=== PATIENT | male | born 1950 | race Caucasian/White ===

== ENCOUNTER 2025-04-21 07:14 | Day surgery (SDC) | payer MEDICARE, OTHER, SELFPAY ==
[2025-04-21] VITALS (14 sets, daily range): BP systolic 130–163; BP diastolic 72–100; BMI 35.4
[2025-04-21] MEDS: LOW STRENGTH ASPIRIN 324 MG PO (08:20)
[2025-04-21 10:20] LABS: ACT-LR - POC > 397 Seconds (116-155)
[2025-04-21 10:20] LABS: ACT-LR - POC > 397 Seconds (116-155)
--- NOTE | 2025-04-21 10:21 | ITS.CL.ANGIO ---
Appointment Manager - Angioplasty
Angioplasty
Procedure Report:
LEFT HEART CATHETERIZATION
Date of Procedure: April 21, 2025
Procedures performed:
1: Coronary angiography
2: Free radial and left internal mammary artery bypass graft angiography
3: Left ventricular hemodynamic assessment
4: Complex percutaneous intervention of the [place] left main and circumflex with placement of 3 drug-eluting stents (3.5 x 15 mm Apolinar 2 distal left main into ostial/proximal circumflex and overlapping 2.25 x 18 mm Apolinar overlapping with a 2.5 x 22 mm
Jasper in the mid and distal obtuse marginal branch
Primary Care Provider: DARIEL Landaverde
Primary Superintendent Meters: Dr. Michael Godwin
INDICATION: The patient is a 74-year-old man with a past medical history significant for known severe coronary artery disease status post CABG over 20 years ago and status post [place] circumflex stenting's in 2003 and 2007 who presents with
recurrent angina and ruled in for a non-ST elevation VT recently during an admission at [facility] in rapid atrial fibrillation. He was started on amiodarone and is back in normal sinus rhythm. In light of his crescendo angina he is
referred for cardiac catheterization.
ACCESS: The patient was prepped and draped in usual sterile fashion. A 5 Greenlandic sheath was placed in the right common femoral artery using the Seldinger over the wire technique. This was upsized to a 6 [place]ic sheath once we moved to intervention.
HEMODYNAMIC FINDINGS (mmHg):
LV(s/d,EDP): 142/21, 23
Ao(s/d,m): 142/77, 106
ANGIOGRAPHIC FINDINGS:
Single-plane Left Ventriculography in GIBSON Projection: Not done. Echo performed during recent [facility] admit on April 17 reported preserved LV systolic function with a visually estimated ejection fraction at 55% and apical hypokinesis. No
significant valvular heart disease.
Coronary Angiography:
Dominance: Right
Left Main: The left main is heavily calcified with distal smooth 50% disease extending into the circumflex ostium.
Left Anterior Descending: Flush proximal occlusion.
Left Circumflex: The circumflex has a calcific 80% proximal stenosis just after the takeoff which appears worse compared to prior angiography in 2019. The first obtuse marginal branch noted on prior angiography is now occluded. The second obtuse
marginal branch is the major patent distal vessel that distally bifurcates into 2 medium caliber vessels that coursed to the lateral apex. The previously placed proximal OM stent is patent with no significant in-stent restenosis. There is a 50 to
60% stenosis just proximal to the previously placed mid OM stent. The stent has diffuse mid 40% stenosis. Distal to stent edge there is a new 80% stenosis with JUAN CARLOS-3 flow in the 2 distal branches.
Right Coronary: Proximal total occlusion
MURRAY to LAD: The graft is widely patent as is the anastomosis. The distal portion of the [place] LAD has fairly limited length and is small caliber with severe diffuse small vessel disease involving 2 areas of 60 to 70% stenosis which appears
unchanged from prior angiography. Similarly there is severe disease retrograde in the LAD filling to significant diagonal branches that also appear to be 60 to 70% stenotic and again unchanged from prior angiography. There is collateral filling of
several circumflex branches noted. This anatomy again appears largely unchanged from prior angiography in 2019.
Free radial to PDA/PLV: This was engaged using a 6 Greenlandic multipurpose diagnostic catheter. The graft is widely patent. It makes a [id number] anastomosis to the distal bifurcation and then continues and gives an end to side anastomosis with the
posterior left ventricular branch. Both anastomoses are widely patent. There is severe preocclusive diffuse proximal PDA disease which appears unchanged from prior angiography and I do not feel it is amenable to PCI. The distal anastomosis is
patent with flow into a very small caliber PLV branch. This appears largely unchanged from prior angiography in 2019.
Percutaneous Coronary Intervention (PCI): In light of his clinical presentation and the above angiographic findings, I elected to proceed with a PCI of the [place] circumflex as I felt this was really the only opportunity for any revascularization
that would not be extraordinarily high risk and risk vessel closure. The severe distal disease in both the free radial graft and MURRAY [place] vessels did not appear significantly worse than on prior angiography in 2019. The patient was pretreated
with oral aspirin and Plavix. Unfractionated heparin was given. A 6 Greenlandic XB 4.0 guiding catheter was used to engage the left main. A Hi-Torque floppy wire was advanced across the left main disease and down into one of the large distal OM
branches. A 6 Greenlandic Guideliner was used in an effort to improve backup support and facilitate stent delivery. Angioplasty of the distal OM lesion was performed with a 2.0 x 12 mm balloon without difficulty. Next a 2.5 x 22 mm Jasper drug-eluting
stent was deployed at 16 kodi for 45 seconds to treat this distal lesion. Follow-up angiography showed an excellent result. I felt the restenosis and stenosis just proximal to the previously placed mid OM stent should be treated and therefore
covered this with a 2.5 x 22 mm Apolinar drug-eluting stent deployed at 16 kodi for 45 seconds in overlapping fashion with the previously placed distal stent. Follow-up angiography showed an excellent result with excellent flow. Finally a 3.5 x 15 mm
Apolinar was deployed in the distal left main covering the ostial/proximal circumflex disease. This stent was postdilated with a 3.5 mm diameter balloon at 16 kodi distally and 18 kodi proximally.
FINAL RESULT: 0% in-stent residual stenosis in both the proximal and distal overlapping stents with an outstanding angiographic result and JUAN CARLOS-3 flow in all vessels.
Fluoroscopy Time (min): 20
Radiation Dose (mGy): 1527
DAP (Gy.cm2): 107
Closure device: 6 Greenlandic Angio-Seal to right common femoral artery
Complications: None.
ASSESSMENT:
1: Successful complex PCI of the [place] left main and [place] circumflex with placement of 3 drug-eluting stents as described above.
2: Very complex [place] disease but widely patent free radial and left internal mammary grafts as described above. Fortunately this appears largely unchanged from prior angiography in 2019. That says he certainly has small vessel ischemia in
multiple vascular territories.
3: Elevated left ventricular filling pressures.
CONCLUSIONS and RECOMMENDATIONS:
1: Admit overnight for routine post drug-eluting stent medical therapy and monitoring. Especially given the fact that he will need early DOAC reinitiation, I want to watch his groin overnight be sure that is safe prior to resuming DOAC and sending
him home.
2: Aggressive medical therapy for end-stage ischemic cardiomyopathy. I do not know that there are many other sensible percutaneous options for further revascularization of severe distal [place] small vessel disease.
3: Close clinical follow-up with Dr. Godwin as planned. Groin check scheduled for this Saturday at 9:30 AM in the [place] office.
Tiki Petty M.D.
--- NOTE | 2025-04-21 11:46 | CM ---
Chart reviewed. Patient is independent of ADLS, lives with his in a [address], 12 [address], 0 DME. Plan is for the patient to return home. Gave patient Advance Directive information. CM to follow
--- NOTE | 2025-04-21 12:54 | W.DS.TRANS ---
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
-
Discharge Instructions:
Discharge Diagnosis/Procedures Angioplasty and stents x3 to Left Circumflex
artery
Diet Low Cholesterol
Activity Other activity
Driving Restrictions No driving for 24 hours
Bathing Restrictions OK to Shower
Other Services Cardiac Rehab
Instructions:
Stand-Alone Forms: DC Instructions- Cath/EP Lab
Changes to Home Medications: Yes
Discharge Medications:
DC Medications w/original date entered in [employer]
allopurinol 100 mg tablet 100 mg PO DAILY 07/07/18
atorvastatin 40 mg tablet 40 mg PO HS 07/07/18
clopidogrel 75 mg tablet 75 mg PO DAILY 07/07/18
isosorbide mononitrate 60 mg tablet,extended release 24 hr 60 mg PO BID 07/07/18
lisinopril 20 mg tablet 20 mg PO DAILY 07/07/18
metoprolol tartrate 50 mg tablet 50 mg PO BID 07/07/18
nitroglycerin 0.4 mg sublingual tablet 0.4 mg sublingual PRN PRN CHEST PAIN 07/07/18
sertraline 100 mg tablet 100 mg PO DAILY 07/07/18
tamsulosin 0.4 mg capsule 0.4 mg PO BID 07/07/18
amlodipine 5 mg tablet 5 mg PO BID ##180 07/08/18
amiodarone 200 mg tablet 200 mg PO DAILY 04/21/25
apixaban 5 mg tablet (Eliquis) 5 mg PO BID 04/21/25
Home Medication Changes
STOP aspirin
Pending Results: No
--- NOTE | 2025-04-21 14:16 | W.DS.TRANS ---
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
-
Discharge Instructions:
Sleep Apnea Risk High
Discharge Diagnosis/Procedures Angioplasty and stents x3 to Left Circumflex
artery
Diet Low Cholesterol
Activity Other activity
Driving Restrictions No driving for 24 hours
Bathing Restrictions OK to Shower
Other Services Cardiac Rehab
Instructions:
Stand-Alone Forms: DC Instructions- Cath/EP Lab
Changes to Home Medications: Yes
Discharge Medications:
DC Medications w/original date entered in [employer]
allopurinol 100 mg tablet 100 mg PO DAILY Gout 07/07/18
atorvastatin 40 mg tablet 40 mg PO HS High Cholesterol 07/07/18
clopidogrel 75 mg tablet 75 mg PO DAILY Blood Clot Prevention/Tx 07/07/18
isosorbide mononitrate 60 mg tablet,extended release 24 hr 60 mg PO BID Blood Pressure 07/07/18
lisinopril 20 mg tablet 20 mg PO DAILY Heart Disease/Condition 07/07/18
metoprolol tartrate 50 mg tablet 50 mg PO BID Heart Disease/Condition 07/07/18
nitroglycerin 0.4 mg sublingual tablet 0.4 mg sublingual PRN PRN CHEST PAIN 07/07/18
sertraline 100 mg tablet 100 mg PO DAILY Mental Health/Anxiety 07/07/18
tamsulosin 0.4 mg capsule 0.4 mg PO BID Urinary Issue 07/07/18
amlodipine 5 mg tablet 5 mg PO BID ##180 07/08/18
amiodarone 200 mg tablet 200 mg PO DAILY Arrhythmia 04/21/25
apixaban 5 mg tablet (Eliquis) 5 mg PO BID Blood Clot Prevention/Tx 04/21/25
Home Medication Changes
Aspirin has been stopped
Pending Results: No
--- NOTE | 2025-04-21 14:17 | W.PN.CARDCBS ---
Today's Communication / Plan
-
Likely discharge to home tomorrow
Impression / Plan
-
PCP: Dr. José Harding/Emilie Cash NP
Cardiology: Dr. Michael Godwin
Impression:
Admitted following cardiac catheterization and PCI of the [place] left main and circumflex 04/21/2025
CAD
s/p CABG 1999
s/p circumflex PCI 2003
s/p circumflex PCI 2007
s/p ALFRED x 3 with 3.5 mm Apolinar ALFRED to the distal left main into the ostial/proximal circumflex and overlapping 2.25 mm [place] and 2.25 mm Apolinar stents in the mid to distal OM 04/21/2025
MURRAY to LAD was widely patent, free radial to PDA/PLB was widely patent at time of cardiac cath 04/21/2025
h/o ICM EF 40 to 45% by echo 10/06/2014 and improved to 55% by LV gram 04/21/2025
Paroxysmal atrial fibrillation
Chronic Eliquis OAC
HTN
Hyperlipidemia
Plan:
-Patient came to [facility] for elective cardiac cath and was found to have disease of the [place] left main and circumflex that was stented with 3 stents as outlined above.
-Prior to admission patient was taking a regimen of aspirin, Plavix and Eliquis, but therapy changed to Plavix and Eliquis only and discharge instructions amended.
-Patient has a history of ICM with EF previously as low as 40 to 45% by an echo in 2014, but more recently has been improved and was 55% by LV gram on 04/21/2025. Outpatient regimen of Lopressor 50 mg BID and lisinopril 20 mg daily has been
continued, patient will continue to follow with his primary slag dumper.
-Patient has a history of paroxysmal atrial fibrillation and has most recently been maintaining SR with amiodarone 200 mg daily
-Outpatient dose of atorvastatin 40 mg daily has been continued
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
Subjective
Date of Service: April 21, 2025
He just finished cardiac cath
Objective
Vital Signs and I&O:
Vital Signs
Temp Pulse Resp BP Pulse Ox
97.8 F 59 15 163/98 97
04/21/25 11:33 04/21/25 11:33 04/21/25 08:30 04/21/25 11:15 04/21/25 11:33
Vital Signs
Temp Pulse Resp BP Pulse Ox
97.8 F 59 15 163/98 97
04/21/25 11:33 04/21/25 11:33 04/21/25 08:30 04/21/25 11:15 04/21/25 11:33
--- NOTE | 2025-04-21 15:07 | PTCARENOTE ---
Received pt from [facility] into 2254. Pt is AAOx3 SB on the monitor VSS Rt femoral site oozing sm amt bloody drainage not evidence of hematoma. + palpable dp pulses. Pt is 1 person stand by assist. urinal at bedside. Call velasquez within reach
[2025-04-21] MEDS: NORVASC 5 MG PO (20:02)
[2025-04-21] MEDS: FLOMAX 0.4 MG PO (20:02)
[2025-04-21] MEDS: IMDUR (EXTENDED RELEASE) 60 MG PO (20:02)
[2025-04-21] MEDS: LOPRESSOR PO (21:54)
[2025-04-21] MEDS: LIPITOR 40 MG PO (22:10)
[2025-04-21] MEDS: LOPRESSOR 50 MG PO (23:05)
[2025-04-22 02:11] VITALS: BP 117/79
[2025-04-22 02:12] VITALS: BMI 35.1
--- NOTE | 2025-04-22 02:33 | PTCARENOTE ---
Pt. has no complaints of chest pain discomfort, VSS, sinus kj 40's-50's with frequent PVC's/PAC's and small runs of nonsustained A-fib. Right groin site dressing CDI without drainage or hematoma, pedal pulse palpable. Pt. OOB with assist x 1,
weak but steady. Resting quietly.
[2025-04-22 03:09] LABS: Blood Urea Nitrogen 20 mg/dl (9-20); Calcium 9.0 mg/dl (8.4-10.2); Carbon Dioxide 26 mmol/L (22-30); Chloride 104 mmol/L (98-107); Estimated Creatinine Clearance 65 ml/min; Glucose 95 mg/dl (70-99); HDL Cholesterol 30 mg/dl; LDL Cholesterol, Calculated 36 mg/dl; Potassium 4.3 mmol/L (3.5-5.1); Sodium 136 mmol/L (135-145); Very Low Density Lipoprotein 24 mg/dl (0-30); eGFR > 60.00
[2025-04-22 03:13] LABS: Hematocrit 38.9 % (39.0-52.0); Hemoglobin 13.1 g/dL (13.0-18.0); Mean Corp Hgb Conc. 33.7 g/dL (33.0-37.0); Mean Corpuscular Volume 96.0 fL (80.0-94.0); Platelet Count 75 10^3/uL (130-400); Red Cell Dist. Width 14.3 % (11.5-14.5)
[2025-04-22 06:48] VITALS: BP 132/83
--- NOTE | 2025-04-22 08:01 | W.PN.CARDCBS ---
Today's Communication / Plan
-
Stable for discharge to home today post PCI with drug-eluting stent yesterday
Impression / Plan
-
PCP: Dr. José Harding/Emilie Cash NP
Cardiology: Dr. Michael Godwin
Impression:
Admitted following cardiac catheterization and PCI of the [place] left main and circumflex 04/21/2025
CAD
s/p CABG 1999
s/p circumflex PCI 2003
s/p circumflex PCI 2007
s/p ALFRED x 3 with 3.5 mm [place] ALFRED to the distal left main into the ostial/proximal circumflex and overlapping 2.25 mm [place] and 2.25 mm Apolinar stents in the mid to distal OM 04/21/2025
MURRAY to LAD was widely patent, free radial to PDA/PLB was widely patent at time of cardiac cath 04/21/2025
h/o ICM EF 40 to 45% by echo 10/06/2014 and improved to 55% by LV gram 04/21/2025
Paroxysmal atrial fibrillation
Chronic Eliquis OAC
HTN
Hyperlipidemia
Plan:
Patient came to [facility] for elective cardiac cath and was found to have disease of the [place] left main and circumflex that was stented with 3 stents as outlined above.
-Prior to admission patient was taking a regimen of aspirin, Plavix and Eliquis, but therapy changed to Plavix and Eliquis only and discharge instructions amended.
-He has had mild asymptomatic bradycardia at rest/sleeping. I would not change his current medical therapy. He has been tolerating metoprolol tartrate 50 mg twice daily as an outpatient and I would maintain this.
-Patient has a history of ICM with EF previously as low as 40 to 45% by an echo in 2014, but more recently has been improved and was 55% by LV gram on 04/21/2025.
Outpatient regimen of Lopressor 50 mg BID and lisinopril 20 mg daily has been continued, patient will continue to follow with his primary healthcare administration intern.
-Patient has a history of paroxysmal atrial fibrillation and has most recently been maintaining SR with amiodarone 200 mg daily. Maintaining Eliquis 5 mg twice daily for atrial fibrillation related thromboembolic risk reduction
-Outpatient dose of atorvastatin 40 mg daily has been continued
- Review of his medical records shows he has stable thrombocytopenia dating back to 2019. Further evaluation, treatment and follow-up as per ATC and his PCP.
His follow-up has been arranged with ATC, Dr. Godwin.
All of his questions answered.
He is stable for discharge to home today
Total discharge time 35 minutes
Progress Note - Sole Inker
Subjective
Date of Service: April 22, 2025
No chest pain shortness of breath palpitations or dizziness.
Objective
Labs:
04/22/25 02:21
04/22/25 02:21
Labs
Hgb 13.1 g/dL (13.0-18.0) 04/22/25 02:21
Hct 38.9 % (39.0-52.0) L 04/22/25 02:21
Plt Count 75 10^3/uL (130-400) L 04/22/25 02:21
Sodium 136 mmol/L (135-145) 04/22/25 02:21
Potassium 4.3 mmol/L (3.5-5.1) 04/22/25 02:21
BUN 20 mg/dl (9-20) 04/22/25 02:21
Creatinine 1.2 mg/dL (0.7-1.3) 04/22/25 02:21
Glucose 95 mg/dl (70-99) 04/22/25 02:21
Vital Signs and I&O:
Vital Signs
Temp Pulse Resp BP Pulse Ox
97.9 F 59 16 117/79 96
04/22/25 06:46 04/22/25 05:00 04/22/25 06:46 04/22/25 02:11 04/22/25 06:46
Vital Signs
Temp Pulse Resp BP Pulse Ox
97.9 F 59 16 117/79 96
04/22/25 06:46 04/22/25 05:00 04/22/25 06:46 04/22/25 02:11 04/22/25 06:46
Intake & Output
04/20/25 04/21/25 04/22/25 04/23/25
06:59 06:59 06:59 06:59
Intake Total 480 / 480
Output Total 900 / 900
Balance -420 / -420
Physical Exam
Physical Exam
Well-appearing, no acute distress.
Regular rate and rhythm normal S1 normal S2, no S3 no S4 grade 1/6 apical stock murmur and no rub
Lungs clear to auscultation bilaterally without wheezes rales or rhonchi
Right groin soft nontender no bruit no bleeding dressing is dry +2 femoral pulses and +2 distal pulses
Abdomen soft nontender nondistended with normoactive bowel sounds
Neurologic exam is grossly nonfocal
[2025-04-22] MEDS: FLOMAX 0.4 MG PO (08:40)
[2025-04-22] MEDS: PACERONE 200 MG PO (08:40)
[2025-04-22] MEDS: PLAVIX 75 MG PO (08:40)
[2025-04-22] MEDS: ZOLOFT 100 MG PO (08:40)
[2025-04-22] MEDS: NORVASC 5 MG PO (08:40)
[2025-04-22] MEDS: IMDUR (EXTENDED RELEASE) 60 MG PO (08:41)
[2025-04-22] MEDS: ZESTRIL 20 MG PO (08:41)
[2025-04-22] MEDS: ELIQUIS 5 MG PO (08:41)
[2025-04-22] MEDS: LOPRESSOR 50 MG PO (08:41)
[2025-04-22] MEDS: ZYLOPRIM 100 MG PO (08:41)
[2025-04-22 10:49] VITALS: BP 93/68
--- NOTE | 2025-04-22 11:51 | PTCARENOTE ---
Assumed care of the pt @ 0700. Pt is AAOx3 SB on the monitor VSS denies cp. Rt fem cath site dressing c/d/i. Call velasquez within reach.
--- NOTE | 2025-04-22 11:53 | PTCARENOTE ---
Pt was ordered discharge to home. Instructions given including medications next dose, activity restrictions, and follow up appointments. Pt verbalized understanding. product development ecologist and PIV removed prior to leaving. Pt escorted out by Dory COLUNGA
via wheelchair.
== END 2025-04-22 12:00 | disposition home or self-care (01) ==
LOC: CATH 07:14
PROVIDERS: Nurse Practitioner; ATTENDING PHYSICIAN Internal Medicine Cardiovascular Disease; FAMILY PHYSICIAN Family Medicine; OTHER PHYSICIAN Internal Medicine Cardiovascular Disease
DX: I21.4 Non-ST elevation (NSTEMI) myocardial infarction (principal); I25.10 Atherosclerotic heart disease of native coronary artery without angina pectoris; I48.0 Paroxysmal atrial fibrillation; I25.2 Old myocardial infarction; Z95.1 Presence of aortocoronary bypass graft; Z95.5 Presence of coronary angioplasty implant and graft; I50.32 Chronic diastolic (congestive) heart failure; I13.0 Hypertensive heart and chronic kidney disease with heart failure and stage 1 through stage 4 chronic kidney disease, or unspecified chronic kidney disease; K21.9 Gastro-esophageal reflux disease without esophagitis; I25.5 Ischemic cardiomyopathy; E78.5 Hyperlipidemia, unspecified; D69.6 Thrombocytopenia, unspecified; Z79.01 Long term (current) use of anticoagulants; Z79.899 Other long term (current) drug therapy; N18.31 Chronic kidney disease, stage 3a
CPT/HCPCS: 80048; 80061; 85027; 85347; 93005; 93459; C1725; C1760; C1769; C1874; C1887; C1894; C9600; Q9967